=== PATIENT | female | born 2000 | race Two or more races ===

== ENCOUNTER 2019-02-06 10:10 | Emergency (ER) | payer BC, OTHER ==
[2019-02-06 10:26] VITALS: BP 113/66; PULSE 105; RESP 20; TEMP 98.3
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
== END 2019-02-06 11:02 | disposition home or self-care (01) ==
LOC: EC 10:10
DX: O9A.211 Injury, poisoning and certain other consequences of external causes complicating pregnancy, first trimester (principal); S83.91XA Sprain of unspecified site of right knee, initial encounter; Z87.891 Personal history of nicotine dependence; Z53.29 Procedure and treatment not carried out because of patient's decision for other reasons; Z3A.01 Less than 8 weeks gestation of pregnancy
CPT/HCPCS: 99283; L1830

== ENCOUNTER 2019-09-12 00:38 | Emergency (ER) | payer BC, OTHER ==
[2019-09-12] MEDS ORDERED: LORazepam 2 MG/ML INJ IM STA ×2 (00:59→07:03)
[2019-09-12] MEDS ORDERED: diphenhydrAMINE 50 MG/ML 1 ML VIAL IM STA (01:02)
[2019-09-12] MEDS ORDERED: HALOPERIDOL LACTATE 5 MG/ML 1 ML VIAL IM PRN (01:02)
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
[2019-09-12 03:18] LABS: HCG,Qualitative Serum Not Detected
[2019-09-12 03:19] LABS: ALT 15 U/L (4-34); AST 27 U/L (14-36); Acetaminophen <10.0 ug/mL; African American GFR (CKD) >90 (>60 ml/min/1.73 sqM); Albumin 4.8 g/dL (3.5-5.0); Alkaline Phosphatase 121 U/L (38-126); Anion Gap 9 mmol/L; Blood Urea Nitrogen 11 mg/dL (7-17); Calcium 9.1 mg/dL (8.4-10.2); Carbon Dioxide 23 mmol/L (22-30); Chloride 114 mmol/L (98-107); Glucose 100 mg/dL (74-99); Non-African American GFR(CKD) >90 (>60 ml/min/1.73 sqM); Salicylate <1.0 mg/dL; Sodium 146 mmol/L (137-145); Total Bilirubin 0.3 mg/dL (0.2-1.3); Total Protein 8.2 g/dL (6.3-8.2)
[2019-09-12 03:20] LABS: Anisocytosis Slight; Basophils # (A) 0.1 k/uL (0-0.2); Basophils % (A) 1 %; Eosinophils # (A) 0.1 k/uL (0-0.7); Eosinophils % (A) 1 %; HCT 37.2 % (34.0-46.0); HGB 11.8 gm/dL (11.4-16.0); Hypochromasia Marked; Lymphocytes # (A) 1.9 k/uL (1.0-4.8); Lymphocytes % (A) 27 %; MCH 26.9 pg (25.0-35.0); MCHC 31.6 g/dL (31.0-37.0); MCV 85.1 fL (80.0-100.0); Mean Platelet Volume 8.3; Monocytes # (A) 0.4 k/uL (0-1.0); Monocytes % (A) 6 %; Neutrophils # (A) 4.5 k/uL (1.3-7.7); Neutrophils % (A) 63 %; Platelet Count 378 k/uL (150-450); RBC 4.38 m/uL (3.80-5.40); RDW 17.5 % (11.5-15.5); WBC 7.1 k/uL (3.8-10.6)
[2019-09-12 03:27] LABS: Alcohol 259 mg/dL
[2019-09-12 09:01] LABS: Amphetamine Screen,Urine Not Detected (NotDetected); Appearance,Urine Clear (Clear); Bacteria,Urine Few /hpf; Barbiturate Screen,Urine Not Detected (NotDetected); Benzodiazepines Screen,Urine Detected (NotDetected); Bilirubin,Urine Negative (Negative); Blood,Urine Negative (Negative); Cocaine Screen,Urine Not Detected (NotDetected); Color,Urine Light Yellow; Glucose,Urine (UA) Negative (Negative); Ketones,Urine Negative (Negative); Leukocyte Esterase,Urine Negative (Negative); Methadone Screen, Urine Not Detected (NotDetected); Mucus,Urine Rare /hpf; Nitrite,Urine Positive (Negative); Opiate Screen,Urine Not Detected (NotDetected); Oxycodone Screen, Urine Not Detected (NotDetected); Phencyclidine Screen,Urine Not Detected (NotDetected); Protein,Urine Negative (Negative); RBC,Urine <1 /hpf (0-5); Specific Gravity,Urine 1.009 (1.001-1.035); Tricyclic Antidepressant,Urine Not Detected (NotDetected); Urn Cannabinoid Scrn Detected (NotDetected); Urobilinogen,Urine <2.0 mg/dL (<2.0); WBC,Urine 1 /hpf (0-5)
[2019-09-12 12:52] VITALS: BP 122/81; PULSE 69; RESP 20; TEMP 98.2
== END 2019-09-12 12:52 | disposition home or self-care (01) ==
LOC: EC 00:38
DX: F10.129 Alcohol abuse with intoxication, unspecified (principal); F43.21 Adjustment disorder with depressed mood; R45.1 Restlessness and agitation; R45.851 Suicidal ideations; Z87.891 Personal history of nicotine dependence; Y90.8 Blood alcohol level of 240 mg/100 ml or more
CPT/HCPCS: 82075; 36415; 80053; 85025; 81001; 81025; 84703; 80306; 83520; 80329; 80320; 99285; 96372 ×2; J2060

== ENCOUNTER 2020-04-05 10:01 | Inpatient (IN) | payer BC, OTHER ==
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
[2020-04-05 10:43] LABS: Anisocytosis Slight; Basophils # (A) 0.1 k/uL (0-0.2); Basophils % (A) 1 %; Eosinophils # (A) 0.2 k/uL (0-0.7); Eosinophils % (A) 2 %; HCT 36.7 % (34.0-46.0); HGB 11.4 gm/dL (11.4-16.0); Hypochromasia Slight; Lymphocytes # (A) 1.6 k/uL (1.0-4.8); Lymphocytes % (A) 14 %; MCH 28.8 pg (25.0-35.0); MCV 92.9 fL (80.0-100.0); Mean Platelet Volume 7.6; Monocytes # (A) 0.8 k/uL (0-1.0); Monocytes % (A) 7 %; Neutrophils # (A) 8.9 k/uL (1.3-7.7); Neutrophils % (A) 76 %; Platelet Count 310 k/uL (150-450); RBC 3.95 m/uL (3.80-5.40); RDW 17.1 % (11.5-15.5); WBC 11.6 k/uL (3.8-10.6)
[2020-04-05 10:54] LABS: ALT 15 U/L (4-34); AST 23 U/L (14-36); African American GFR (CKD) >90 (>60 ml/min/1.73 sqM); Albumin 4.6 g/dL (3.5-5.0); Alkaline Phosphatase 92 U/L (38-126); Anion Gap 8 mmol/L; Blood Urea Nitrogen 15 mg/dL (7-17); Calcium 9.1 mg/dL (8.4-10.2); Carbon Dioxide 24 mmol/L (22-30); Chloride 109 mmol/L (98-107); Glucose 83 mg/dL (74-99); Non-African American GFR(CKD) >90 (>60 ml/min/1.73 sqM); Potassium 4.4 mmol/L (3.5-5.1); Sodium 141 mmol/L (137-145); Total Bilirubin 0.3 mg/dL (0.2-1.3); Total Protein 7.5 g/dL (6.3-8.2)
--- NOTE | 2020-04-05 11:29 | CT ---
EXAMINATION TYPE: CT soft tissue neck w con DATE OF EXAM: 04/05/2020 11:19 AM COMPARISON: 07/29/2015 HISTORY: Rt sided tonsil swelling, sore throat CT DLP: 278.8 mGycm Automated exposure control for dose reduction was used. CONTRAST: CT scan of the neck is performed following with IV Contrast, patient injected with 100 mL of Isovue 3 00. Axial images are obtained, coronal and sagittal reformatted images are reviewed. FINDINGS: Lung apices are clear. Thyroid homogeneous. Vascular structures enhance normally. There is shotty adenopathy throughout the soft tissue compartments of the neck diffusely. Pathologic lymphadenopathy in the carotid space with the largest lymph node on the left measuring a short axis o f 1.2 cm. There is deviation of the airway from right to left and ill-defined thickening and heteroge neous attenuation of the right peritonsillar region. Phlegmon or developing abscess in the differenti al diagnosis. No well-circumscribed abscess seen. The low-attenuation does suggest developing fluid a nd abscess formation. Parotid glands and submandibular glands are symmetric Nasopharynx symmetric. Epiglottis has a normal appearance. There may be mild narrowing of the airway under the deviation inf lammatory change in the right peritonsillar region. Vocal cords symmetric. Base of the tongue symmetr ic. IMPRESSION: 1. There is asymmetric enlargement and heterogeneous attenuation to the right peritonsillar region co mpatible with peritonsillitis. Phlegmon and developing abscess suspected. No well-circumscribed circu lar oval encapsulated abscess. See above. There is deviation of the airway from right to left. Mild n arrowing of the airway suspected correlate clinically. 2. Diffuse shotty adenopathy throughout the soft tissue compartments of the neck with pathologic kamryn opathy in the carotid space greater on the left measuring short axis of 1.2 cm.
[2020-04-05] MEDS ORDERED: DEXAMETHASONE SOD PHOSPHATE 4 MG/ML 1 ML VIAL IV STA (11:35)
[2020-04-05] MEDS ORDERED: CLINDAMYCIN 600 MG in DEXTROSE 5% IN WATER 50 ML IVPB STA ×2 (11:36)
[2020-04-05] MEDS ORDERED: PIPERACILLIN-TAZOBACTAM 3.375 GM in SODIUM CHLORIDE 0.9% 100 ML IVPB STA (11:49)
[2020-04-05] MEDS ORDERED: SODIUM CHLORIDE 0.9% 500 ML 500 ML IV ONE (11:54)
[2020-04-05] MEDS ORDERED: SODIUM CHLORIDE 0.9% 1,000 ML IV ONE (11:54)
[2020-04-05] MEDS ORDERED: NALOXONE 0.4 MG/ML 1 ML VIAL IV PRN (12:19)
[2020-04-05] MEDS ORDERED: ONDANSETRON 4 MG/2 ML VIAL IVP PRN (14:21)
[2020-04-05] MEDS ORDERED: ACETAMINOPHEN TAB 325 MG TAB PO PRN (14:21)
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
[2020-04-05] MEDS: SODIUM CHLORIDE 0.9% 1,000 ML IV SCH ×2 (14:39→16:30)
[2020-04-05] MEDS: methylPREDNISolone SOD SUCCI 125 MG/2 ML VIAL IV SCH ×2 (16:29→23:45)
[2020-04-05] MEDS: AMPICILLIN-SULBACTAM 3 GM in SODIUM CHLORIDE 0.9% 100 ML IVPB SCH ×2 (16:29→23:45)
[2020-04-05] MEDS: HEPARIN SODIUM,PORCINE 5,000 UNIT/ML 1 ML VIAL SQ SCH (22:08)
[2020-04-06 01:12] LABS: Appearance,Urine Clear (Clear); Bilirubin,Urine Negative (Negative); Blood,Urine Negative (Negative); Color,Urine Light Yellow; Glucose,Urine (UA) Negative (Negative); Ketones,Urine Negative (Negative); Leukocyte Esterase,Urine Trace (Negative); Mucus,Urine Rare /hpf; Nitrite,Urine Negative (Negative); Protein,Urine Negative (Negative); RBC,Urine <1 /hpf (0-5); Specific Gravity,Urine 1.009 (1.001-1.035); Squamous Epithelial Cell,Urine 2 /hpf (0-4); Urobilinogen,Urine <2.0 mg/dL (<2.0); WBC,Urine 1 /hpf (0-5)
[2020-04-06] MEDS: SODIUM CHLORIDE 0.9% 1,000 ML IV SCH ×2 (04:29→05:29)
[2020-04-06] MEDS: AMPICILLIN-SULBACTAM 3 GM in SODIUM CHLORIDE 0.9% 100 ML IVPB SCH ×2 (05:29→12:15)
[2020-04-06 07:44] LABS: Anisocytosis Slight; Basophils % (A) 0 %; Eosinophils % (A) 0 %; HCT 37.4 % (34.0-46.0); Hypochromasia Moderate; Lymphocytes # (A) 0.6 k/uL (1.0-4.8); Lymphocytes % (A) 5 %; MCH 30.3 pg (25.0-35.0); MCV 94.7 fL (80.0-100.0); Mean Platelet Volume 7.8; Monocytes # (A) 0.2 k/uL (0-1.0); Monocytes % (A) 2 %; Neutrophils % (A) 92 %; Platelet Count 332 k/uL (150-450); RBC 3.95 m/uL (3.80-5.40); RDW 16.8 % (11.5-15.5)
[2020-04-06 07:57] LABS: African American GFR (CKD) >90 (>60 ml/min/1.73 sqM); Anion Gap 6 mmol/L; Blood Urea Nitrogen 9 mg/dL (7-17); Calcium 9.1 mg/dL (8.4-10.2); Carbon Dioxide 23 mmol/L (22-30); Chloride 109 mmol/L (98-107); Glucose 129 mg/dL (74-99); Non-African American GFR(CKD) >90 (>60 ml/min/1.73 sqM); Potassium 4.2 mmol/L (3.5-5.1); Sodium 138 mmol/L (137-145)
[2020-04-06 08:23] VITALS: RESP 16
[2020-04-06] MEDS: HEPARIN SODIUM,PORCINE 5,000 UNIT/ML 1 ML VIAL SQ SCH (09:37)
--- NOTE | 2020-04-06 10:13 | P.PN ---
Subjective Progress Note Date: 04/06/20 The patient is a 19-year-old female with known PMH who had presented to the ED with complaints of throat pain. She was admitted after CT neck revealed a right-sided peritonsillitis with suspected abscess and deviation of the airway from the right to the left with mild narrowing of the airway. The patient was started on Unasyn. She was seen and evaluated at the bedside on 04/06. She reported that her sore throat has significantly improved and is essentially resolved. She denied fever or chills. She also denied difficulty swallowing or changes in her voice. Denied chest pain, shortness of breath, abdominal pain, or diarrhea. Objective - Vital Signs Vital signs: Vital Signs Temp 98.2 F 04/06/20 07:18 Pulse 66 04/06/20 07:18 Resp 16 04/06/20 07:18 BP 108/61 04/06/20 07:18 Pulse Ox 97 04/06/20 07:18 Intake & Output 04/05/20 04/06/20 04/06/20 18:59 06:59 18:59 Weight 68.039 kg Other: Voiding Method Toilet Toilet # Voids 3 - Exam General: Non-toxic, in no acute distress, appears stated age, normal weight HEENT: NC/AT, anicteric sclerae, moist conjunctiva, no lid-lag, PERRLA, bilateral tonsillar enlargement with minimal exudates Cardiovascular: S1/S2 wnl, no murmurs, rubs, or gallops Lungs: Clear to auscultation, normal respiratory effort, no accessory muscle use Abdominal: Soft, non-tender, non-distended, no guarding, rebound, or rigidity Skin: Warm, dry Extremities: No edema or contractures Psychiatric: Alert and oriented to person, place and time, appropriate affect Neuro: CN II-XII grossly intact, Strength 5/5 in all 4 extremities, Speech intact, Sensation to light touch grossly intact throughout - Labs CBC & Chem 7: 04/06/20 07:13 04/06/20 07:13 Labs: Abnormal Lab Results - Last 24 Hours (Table) 04/05/20 04/05/20 04/06/20 Range/Units 10:31 10:31 00:35 WBC 11.6 H (3.8-10.6) k/uL RDW 17.1 H (11.5-15.5) % Neutrophils # 8.9 H (1.3-7.7) k/uL Lymphocytes # (1.0-4.8) k/uL Chloride 109 H (98-107) mmol/L Creatinine 0.51 L (0.52-1.04) mg/dL Glucose (74-99) mg/dL Ur Leukocyte Esterase Trace H (Negative) Urine Mucus Rare H (None) /hpf 04/06/20 04/06/20 Range/Units 07:13 07:13 WBC 12.0 H (3.8-10.6) k/uL RDW 16.8 H (11.5-15.5) % Neutrophils # 11.0 H (1.3-7.7) k/uL Lymphocytes # 0.6 L (1.0-4.8) k/uL Chloride 109 H (98-107) mmol/L Creatinine 0.48 L (0.52-1.04) mg/dL Glucose 129 H (74-99) mg/dL Ur Leukocyte Esterase (Negative) Urine Mucus (None) /hpf Microbiology - Last 24 Hours (Table) 04/05/20 10:41 Group A Strep Throat Culture - Preliminary Throat Assessment and Plan Plan: Perritonsillitis with suspected abscess, significantly improved -ENT consult pending -WBC count slightly up from 11.6-12.0 -Continue with Unasyn -Continue with IV fluids -Follow-up blood cultures and throat cultures DVT prophylaxis -Heparin subq Discussed with: Patient Anticipated discharge date: 04/[address]: Home A total of 30 minutes was spent on the care of this complex patient more than 50% of the time was spent in counseling and care coordination.
[2020-04-06 15:12] VITALS: BP 118/76; PULSE 76; TEMP 99.4
--- NOTE | 2020-04-06 15:37 | P.DS ---
Providers Date of admission: 04/05/20 12:20 Expected date of discharge: 04/06/20 Attending physician: Yohana Macdonald DO Consults: 04/05/20 13:02 Consult Physician Routine Consulting Provider: Pratik Contreras Consult Reason/Comments: tonsillar abscess Do you want consulting provider notified?: Yes Primary care physician: Stated None Hospital Course: The patient is a 19-year-old female with known PMH who had presented to the ED with complaints of throat pain. She was admitted after CT neck revealed a right-sided peritonsillitis with suspected abscess and deviation of the airway from the right to the left with mild narrowing of the airway. The patient was started on Unasyn. She was seen and evaluated at the bedside on 04/06. She reported that her sore throat had significantly improved and has essentially resolved. She denied fever or chills. She also denied difficulty swallowing or changes in her voice. Denied chest pain, shortness of breath, abdominal pain, or diarrhea. The patient was evaluated by ENT who recommended continued outpatient oral antibiotic therapy with a follow-up in their clinic for scheduling of a tonsillectomy. The patient is otherwise stable and ready for discharge to home. Physical Examination General: Non-toxic, in no acute distress, appears stated age, normal weight HEENT: NC/AT, anicteric sclerae, moist conjunctiva, no lid-lag, PERRLA, bilateral tonsillar enlargement with minimal exudates Cardiovascular: S1/S2 wnl, no murmurs, rubs, or gallops Lungs: Clear to auscultation, normal respiratory effort, no accessory muscle use Abdominal: Soft, non-tender, non-distended, no guarding, rebound, or rigidity Skin: Warm, dry Extremities: No edema or contractures Psychiatric: Alert and oriented to person, place and time, appropriate affect Neuro: CN II-XII grossly intact, Strength 5/5 in all 4 extremities, Speech intact, Sensation to light touch grossly intact throughout Discharge diagnosis: Peritonsillitis with suspicion of abscess A total of 35 minutes of time were spent preparing this complex discharge summary. Patient Condition at Discharge: Stable Plan - Discharge Summary Discharge Rx Participant: No New Discharge Prescriptions: No Action No Known Home Medications Discharge Medication List No Known Home Medications 08/13/16 [History] Follow up Appointment(s)/Referral(s): None,Stated [Primary Care Provider] - 1-2 days
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
--- NOTE | 2020-04-08 16:50 | CDI ---
Documentation Clarification Form Date: 04/08/20 From: Josseline Onofre Phone: If you have a question about this query, please contact Anjelica Jules, Public Works Supervisor at [phone] between 8am and 5pm. Admit Date: 04/05/20 Discharge Date:04/06/20 Patient Name: Bella Ma Visit Number: [id number] ATTENTION: The Clinical Documentation Specialists (CDI) and [facility] Coding Staff appreciate your assistance in clarifying documentation. Please respond to the clarification below the line at the bottom and electronically sign. The CDI & [facility] Coding staff will review the response and follow-up if needed. Please note: Queries are made part of the Legal Health Record. If you have any questions, please contact the author of this message via ITS. Dear Dr. Lira The diagnosis sepsis was documented in the H&P, but is not noted in subsequent documentation. History/Risk Factors: Peritonsillitis with abscess Clinical Indicators: Throat pain, elevated WBC, increased pulse WBC: 11.6 Lactic Acid: 0.8 Blood cultures: No growth. Vital signs on admission: T. 98.4, P. 105, R.18, BP 115/80 Treatment: Antibiotics: IV Unasyn IV Bolus: 1 liter NS bolus then at 130 mls/hr Please clarify if the sepsis was: Present/active this admission Treated and resolved this admission Ruled out Other, please specify Clinically unable to determine Present at admission, treated and subsequently resolved MTDD
== END 2020-04-06 16:33 | disposition home or self-care (01) | DRG 872 ==
LOC: EC 10:01 → 6PED 12:20 → 4SSUR 12:58
PROVIDERS: ADMIT Internal Medicine; ATTEND Internal Medicine
DX: A41.9 Sepsis, unspecified organism (principal); J36 Peritonsillar abscess; F32.9 Major depressive disorder, single episode, unspecified; R59.0 Localized enlarged lymph nodes; Z87.891 Personal history of nicotine dependence; Z90.49 Acquired absence of other specified parts of digestive tract; Z87.820 Personal history of traumatic brain injury
CPT/HCPCS: 36415; 70491; 80048; 80053; 81001; 81025; 83605; 85025; 87040; 87081; 87430; 96365; 96366; 96368; 96375; 99284